=== PATIENT | female | born 2005 | race Caucasian/White ===

== ENCOUNTER 2024-11-19 08:07 | Emergency (ER) | payer MEDICARE, OTHER ==
[~2024-11-19] VITALS: Ht 134.6 cm; Wt 46.8 kg
[2024-11-19 09:00] VITALS: BP 128/68
== END 2024-11-19 08:56 | disposition home or self-care (01) ==
LOC: ED 08:07
DX: S80.01XA Contusion of right knee, initial encounter (principal); W19.XXXA Unspecified fall, initial encounter
CPT/HCPCS: 73560; 99283

== ENCOUNTER 2025-02-09 12:14 | Emergency (ER) | payer MEDICARE, OTHER ==
[~2025-02-09] VITALS: Ht 134.6 cm; Wt 46.3 kg
[2025-02-09] MEDS ORDERED: FLUOXETINE20 MG/5 ML PO (14:40)
[2025-02-09] MEDS ORDERED: IVABRADINE HCL5 MG PO (14:40)
[2025-02-09] MEDS ORDERED: RIZATRIPTAN5 M1 PO (14:40)
== END 2025-02-09 18:45 | disposition home or self-care (01) ==
LOC: ED 12:14
DX: M54.6 Pain in thoracic spine (principal)
CPT/HCPCS: 72070; 99283